=== PATIENT | female | born 1990 | race African-American/Black ===

== ENCOUNTER 2021-07-04 14:26 | Emergency (ER) | payer SELFPAY | END 2021-07-04 18:22 | disposition home or self-care (01) | LOC: CSHERS 14:26 | DX: S50.12XA Contusion of left forearm, initial encounter (principal); S00.83XA Contusion of other part of head, initial encounter; Y04.8XXA Assault by other bodily force, initial encounter; F17.210 Nicotine dependence, cigarettes, uncomplicated | CPT/HCPCS: 99283 ==